=== PATIENT | female | born 1975 | race American Indian/Alaskan Native ===

== ENCOUNTER 2016-11-29 02:51 | Emergency (ER) | payer MEDICAID, OTHER ==
[2016-11-29] MEDS ORDERED: XANAX PO ONE (03:42)
[2016-11-29 04:20] VITALS: BP 147/97
--- NOTE | 2016-11-29 05:33 | Emergency Department Report ---
HPI - General Chief Complaint: Chest Pain Time Seen by Provider: 11/29/16 03:32 - HPI HPI: This is a 41-year-old -French female who presents to the emergency department from home with complaint of what she believes to be anxiety. The patient says she's dealing with her grandmother currently dying and "transitioning." The patient already has a history of anxiety and panic attacks but says that today she began having some pain to the middle of her chest and having some numbness and paresthesias to the hands and feet. This was associated with some shortness of breath. The patient also thought that she might be having some type of allergic reaction and she felt like her tongue might be swelling and her lips were numb. However the patient currently complains only of the chest pain and shortness of breath and it is improved but still there. She has a past medical history of hypertension and takes hydrochlorothiazide 25 mg per day. She presents with some elevated blood pressure and says she is compliant with her medication. She does admit to smoking a cigarette earlier today prior to presentation. She denies every day tobacco use and says she only does it when she is "stressed." She is not currently have a primary care doctor. No recent travel or sick contacts at home. ED Past Medical Hx - Past Medical History Hx Hypertension: Yes (out of BP med X a week.) - Surgical History Additional Surgical History: HERNIA SURGERY and TUBAL LIGATION, HYSTERECTOMY - Social History Smoking Status: Current Every Day Smoker Substance Use Type: None - Medications Home Medications: Home Medications Medication Instructions Recorded Confirmed Last Taken Type Hydrochlorothiazide 25 mg PO DAILY #30 11/10/15 11/29/16 Unknown Rx ED Review of Systems ROS: Stated complaint: CHEST PAIN Other details as noted in HPI Comment: All other systems reviewed and negative Constitutional: denies: chills, fever Eyes: denies: eye pain, eye discharge, vision change ENT: denies: ear pain, throat pain Respiratory: cough, shortness of breath Gastrointestinal: denies: abdominal pain, nausea, diarrhea Genitourinary: denies: urgency, dysuria, discharge Musculoskeletal: denies: back pain, joint swelling, arthralgia Skin: denies: rash, lesions Neurological: paresthesias. denies: headache Psychiatric: anxiety. denies: homicidal thoughts, suicidal thoughts Physical Exam - Physical Exam Vital Signs: Vital Signs 11/29/16 11/29/16 11/29/16 03:10 03:28 03:30 Temperature 98.5 F Pulse Rate 142 H 119 H 114 H Respiratory 24 16 12 Rate Blood Pressure 196/109 176/107 158/90 Blood Pressure 196/109 [Left] O2 Sat by Pulse 99 97 97 Oximetry 11/29/16 11/29/16 03:38 04:00 Temperature Pulse Rate 95 H Respiratory 20 18 Rate Blood Pressure 147/97 Blood Pressure [Left] O2 Sat by Pulse 98 Oximetry Physical Exam: GENERAL: The patient is well-developed well-nourished. Patient appears very anxious. HEENT: Normocephalic. Atraumatic. Extraocular motions are intact. Patient has moist mucous membranes. Pupils equal reactive to light bilaterally. NECK: Supple. Trachea is midline. CHEST/LUNGS: Clear to auscultation. There is no respiratory distress noted. No chest pain to palpation of chest wall. HEART/CARDIOVASCULAR: Regular. There is moderate tachycardia. There is no gallop rub or murmur. ABDOMEN: Abdomen is soft, nontender. Patient has normal bowel sounds. There is no abdominal distention. SKIN: There is no rash. There is no edema. There is no diaphoresis. NEURO: The patient is awake, alert, and oriented. The patient is cooperative. The patient has no focal neurologic deficits. The patient has normal speech. Cranial nerves II through XII grossly intact. MUSCULOSKELETAL: There is no tenderness or deformity. There is no limitation range of motion. There is no evidence of acute injury. PSYCH: Patient is very anxious ED Course Vital Signs 11/29/16 11/29/16 11/29/16 03:10 03:28 03:30 Temperature 98.5 F Pulse Rate 142 H 119 H 114 H Respiratory 24 16 12 Rate Blood Pressure 196/109 176/107 158/90 Blood Pressure 196/109 [Left] O2 Sat by Pulse 99 97 97 Oximetry 11/29/16 11/29/16 03:38 04:00 Temperature Pulse Rate 95 H Respiratory 20 18 Rate Blood Pressure 147/97 Blood Pressure [Left] O2 Sat by Pulse 98 Oximetry ED Medical Decision Making - EKG Data -: EKG Interpreted by Ga EKG shows normal: sinus rhythm, axis, intervals, QRS complexes, ST-T waves ( nonspecific ST-T waves) Rate: tachycardia (147 bpm) - EKG Data When compared to previous EKG there are: previous EKG unavailable Interpretation: nonspecific ST-T wave jessie (with sinus tachycardia) - Radiology Data Radiology results: image reviewed interpreted by me: Chest x-ray did not show any acute process. Heart is normal shape and size. No effusions. No pneumothorax. No signs of pneumonia seen. - Medical Decision Making 41-year-old female presents with some acute chest pain, shortness of breath and some other symptoms. Patient is very adamant that she is having a panic attack and anxiety. When she does talk about her anxiety and her issues her heart rate does tend to go up. However with the acute chest pain, tachycardia, I told the patient that we needed to rule out emergent condition such as DC and PE. However the patient refused any lab draws or urine. The patient was given a Xanax for possible anxiety. EKG just showed sinus tachycardia but no signs of ST elevation DC, dysrhythmia or ischemia. Patient was reevaluated multiple times for multiple hours and she does appear greatly improved. Heart rate is come down to a normal level and patient's anxiety appears better controlled. However, since the patient refused the labs and urinalysis, I was unable to fully rule out some of the emergent conditions. And for this reason the patient signed out AGAINST MEDICAL ADVICE. She was encouraged to return if she changes her mind about further evaluation or if her symptoms worsen or with any acute distress. - Differential Diagnosis panic attack, DC, PE, hyperthyroidism Critical Care Time: No Critical care attestation.: If time is entered above; I have spent that time in minutes in the direct care of this critically ill patient, excluding procedure time. ED Disposition Clinical Impression: Panic attack, Elevated blood pressure reading Chest pain Qualifiers: Chest pain type: unspecified Qualified Code(s): R07.9 - Chest pain, unspecified Disposition: LEFT AGAINST MEDICAL ADVICE Is pt being admited?: No Condition: Stable Instructions: Chest Pain (ED), Panic Disorder (ED), Anxiety (ED) Additional Instructions: Please return to the emergency department with any worsening of your symptoms or if you change your mind about further evaluation of your chest pain. Follow up with a primary care doctor as soon as possible. Referrals: PRIMARY CARE, [Primary Care Provider] - 3-5 Days Forms: AMA Form Time of Disposition: 05:34
--- NOTE | 2016-11-29 08:30 | XRay Report ---
AP CHEST: HISTORY: chest pain AP view of the chest demonstrates a normal mediastinal and cardiac contour with clear lungs and normal bony and soft tissue structures. IMPRESSION: Unremarkable AP chest.
== END 2016-11-29 07:17 | disposition left against medical advice (07) ==
LOC: ED 02:51
DX: F41.0 Panic disorder [episodic paroxysmal anxiety] (principal); R07.9 Chest pain, unspecified; I10 Essential (primary) hypertension; F17.200 Nicotine dependence, unspecified, uncomplicated
CPT/HCPCS: 71010; 93005; 93010; 99285